=== PATIENT | male | born 1990 | race Caucasian/White ===

== ENCOUNTER 2017-11-15 22:44 | Emergency (ER) | payer OTHER ==
[~2017-11-15] VITALS: Ht 180.3 cm; Wt 77.1 kg
[2017-11-15 22:47] VITALS: BP 150/79
--- NOTE | 2017-11-15 22:50 | NUR ---
TO LOBBY A/W BED, AIDEE BRITO NOTED
--- NOTE | 2017-11-15 23:22 | NUR ---
PT TO ER BED 10
--- NOTE | 2017-11-15 23:30 | NUR ---
27/M CAME IN ED, C/O 12/10 SHARP, ACHING LOWER ABD PAIN, NONRADIATING, X8 DAYS. PT REPORTS N/V THAT RESOLVED 2 DAYS AGO, DIARRHEA X8 DAYS. PT REPORTS PRODUCTIVE COUGH WITH YELLOW SPUTUM. PT REPORTS FEVER. HX HTN, HIV. RX TRUVADA. NKA. SKIN IS INTACT, PINK/WARM/DRY; AAOX4, PERRL, WITH EVEN AND STEADY GAIT; LUNGS CLEAR BL, BREATHING UNLABORED; HR EVEN AND REGULAR, BL PERIPHERAL PULSES PRESENT; BS ACTIVE X4, SLIGHT TENDERNESS ON LOWER ABD; VSS; PATIENT POSITIONED FOR COMFORT; HOB ELEVATED; BEDRAILS UP X2; BED DOWN. ER MD MADE AWARE.
[2017-11-16] MEDS ORDERED: KETOROLAC 30 MG/ML VIAL IM ONE
[2017-11-16] MEDS ORDERED: PHENYLEPHRINE 0.5% 15 ML BTL NS ONE
[2017-11-16 00:55] VITALS: BP 137/62
--- NOTE | 2017-11-16 00:55 | NUR ---
Patient discharged with v/s stable. Written and verbal after care instructions given and explained. Patient alert, oriented and verbalized understanding of instructions. Ambulatory with steady gait. All questions addressed prior to discharge. ID band removed. Patient advised to follow up with PMD. Rx of Naproxen, Bentyl, and Azithromycin given. Patient educated on indication of medication including possible reaction and side effects. Opportunity to ask questions provided and answered.
== END 2017-11-16 00:55 | disposition home or self-care (01) ==
LOC: MED 22:44
DX: J20.9 Acute bronchitis, unspecified (principal); I10 Essential (primary) hypertension; F17.210 Nicotine dependence, cigarettes, uncomplicated
CPT/HCPCS: 71045; 81002; 96372; 99284; J1885; Q0092

== ENCOUNTER 2018-06-14 09:16 | Emergency (ER) | payer OTHER ==
[~2018-06-14] VITALS: Ht 172.7 cm; Wt 73.2 kg
[2018-06-14 09:20] VITALS: BP 138/89
--- NOTE | 2018-06-14 09:25 | NUR ---
PT AMBULATES TO BED 5
--- NOTE | 2018-06-14 09:34 | NUR ---
28/M BIB MOTHER C/O BL LOWER ABD CRAMPING, HEMATEMESIS AND BLOODY DIARRHEA X 2 WEEKS. PT REPORTS THAT HE WAS DIAGNOSES W/ HIV 2 MONTHS AGO AND IS AWAITING TREATMENTS. ABDOMEN SOFT. SKIN IS PINK/WARM/DRY; AAOX4 WITH EVEN AND STEADY GAIT; LUNGS CLEAR BL; HR EVEN AND REGULAR; PT DENIES ANY FEVER, CP, SOB, OR COUGH AT THIS TIME; PATIENT STATES PAIN OF 10/10 AT THIS TIME.PATIENT POSITIONED FOR COMFORT; HOB ELEVATED; BEDRAILS UP X2; BED DOWN. ER MD MADE AWARE OF PT STATUS.
--- NOTE | 2018-06-14 10:36 | NUR ---
Patient being evaluated by physician at bedside.
[2018-06-14] MEDS ORDERED: NACL 0.9% 1,000 ML IV ONE (10:40)
[2018-06-14] MEDS ORDERED: ONDANSETRON 4 MG/2 ML VIAL IVP ONE (10:40)
[2018-06-14] MEDS ORDERED: PANTOPRAZOLE 40 MG INJ VIAL IVP ONE (10:40)
[2018-06-14 10:57] LABS: BASOPHILS % (AUTO) 0.4 % (0.0-2.0); EOSINOPHILS # (AUTO) 0.1 K/uL (0-0.4); EOSINOPHILS % (AUTO) 1.1 % (0.0-4.0); LYMPHOCYTES # (AUTO) 1.9 K/uL (2.0-11.5); MEAN CORPUSCULAR HEMOGLOBIN 27 pg (27-31); MEAN CORPUSCULAR HGB CONC 33 g/dL (33-37); MEAN CORPUSCULAR VOLUME 82.2 fL (80-94); MONOCYTES # (AUTO) 0.8 K/uL (0.8-1.0); MONOCYTES % (AUTO) 9.2 % (1.7-9.3); NEUTROPHILS # (AUTO) 5.5 K/uL (1.8-7.7); NEUTROPHILS % (AUTO) 66.3 % (42.2-75.2); PLATELET COUNT (AUTO) 352 K/uL (140-450); RED BLOOD CELL COUNT(AUTO) 5.12 MIL/uL (4.20-6.10); RED CELL DISTRIBUTION WIDTH 13.1 % (11.6-13.7); WHITE BLOOD COUNT (AUTO) 8.3 K/uL (4.8-10.8)
--- NOTE | 2018-06-14 11:03 | NUR ---
PT TAKEN TO CT
--- NOTE | 2018-06-14 11:09 | NUR ---
PT RETURNED FROM CT
[2018-06-14 11:11] LABS: ANION GAP 8.2 (8-16); CARBON DIOXIDE 31.3 mmol/L (21-32); POTASSIUM 3.5 mmol/L (3.5-5.1)
[2018-06-14 11:17] LABS: ALBUMIN 3.4 g/dL (3.4-5.0); TOTAL BILIRUBIN 0.2 mg/dL (0.0-1.0)
[2018-06-14 11:21] LABS: PROTHROMBIN TIME 10.1 secs (10.8-13.4)
--- NOTE | 2018-06-14 11:37 | NUR ---
Patient being evaluated by DR MACHADO at bedside. Addendum: 06/14/18 at 1230 by [facility] CAN'T PROVIDE URINE AT THIS TIME
[2018-06-14 12:25] VITALS: BP 124/78
--- NOTE | 2018-06-14 12:25 | NUR ---
Patient discharged with v/s stable. Written and verbal after care instructions given and explained. Patient alert, oriented and verbalized understanding of instructions. Ambulatory with steady gait. All questions addressed prior to discharge. ID band removed. Patient advised to follow up with PMD. Rx of ZOFRAN, PROTONIX & LOMOTIL given. Patient educated on indication of medication including possible reaction and side effects. Opportunity to ask questions provided and answered.
== END 2018-06-14 12:25 | disposition home or self-care (01) ==
LOC: MED 09:16
DX: R19.7 Diarrhea, unspecified (principal); R10.9 Unspecified abdominal pain; R11.2 Nausea with vomiting, unspecified; R30.0 Dysuria; R42 Dizziness and giddiness; I10 Essential (primary) hypertension; F17.200 Nicotine dependence, unspecified, uncomplicated
CPT/HCPCS: 36415; 71045; 74176; 80053; 83690; 85025; 85610; 85730; 86886; 86900; 86901; 93005; 96361; 96374; 96375; 99284; C9113; J2405; J7030

== ENCOUNTER 2018-07-01 16:48 | Emergency (ER) | payer OTHER ==
[~2018-07-01] VITALS: Ht 180.3 cm; Wt 72.6 kg
[2018-07-01 17:04] VITALS: BP 141/86
--- NOTE | 2018-07-01 17:04 | NUR ---
PT TRIAGED AND SENT TO ER LOBBY
--- NOTE | 2018-07-01 17:58 | NUR ---
PT CALLED X 1 NO RESPONSE
--- NOTE | 2018-07-01 18:15 | NUR ---
CALLED X 2 NO REPONSE
--- NOTE | 2018-07-01 18:20 | NUR ---
PT CALLED X 3 NO RESPONSE
--- NOTE | 2018-07-01 18:32 | NUR ---
PATIENT LEFT WITHOUT BEING SEEN BY DR. GONGORA. NO FURTHER CARE PROVIDED FOR PATIENT.
== END 2018-07-01 17:58 | disposition left against medical advice (07) ==
LOC: MED 16:48
DX: R68.89 Other general symptoms and signs (principal); Z53.21 Procedure and treatment not carried out due to patient leaving prior to being seen by health care provider

== ENCOUNTER 2020-03-25 01:20 | Inpatient (IN) | payer OTHER, SELFPAY ==
[~2020-03-25] VITALS: Ht 180.3 cm; Wt 77.1 kg
[2020-03-25 01:25] VITALS: BP 125/90
--- NOTE | 2020-03-25 01:32 | NUR ---
pt ambulated to ER bed 2 w/ steady gait.
--- NOTE | 2020-03-25 01:35 | NUR ---
COVERING FOR PRIMARY NURSE WHILE ON LUNCH --- 29 Y/O MALE PRESENTED TO ED C/O DIARRHEA X 1 WEEK . PT STATES HE HAS HAD 1 DAY OF MUCUS AND BRIGHT BLOODY DIARRHEA. PT STATES HE STARTED TAKING PEPTO BISMOL BUT IT HAS MADE IT WORSE AND HIS STOOL TURNED WATERY BLACK AFTER USING THE MEDICATION. PT RATES PAIN 9/10 , CRAMPING. ABD FLAT, SOFT AND NONTENDER . HYPERACTIVE BOWEL SOUNDS NOTED. PT STATES HE HAD A FEVER YESTERDAY BUT DOES NOT HAVE ONE TODAY. PT DENIES N/V/BODY ACHES, CHILLS. A/O X 4 , RR EVEN AND UNLABORED. NO ACUTE DISTRESS NOTED AT THIS TIME. ERMD MADE AWARE OF PT STATUS. PMH: HIV + NKA
--- NOTE | 2020-03-25 01:55 | NUR ---
ERMD AT BEDSIDE FOR MEDICAL EVALUATION
[2020-03-25] MEDS ORDERED: LEVOFLOXACIN 500 MG/D5W PREMIX 100 ML IV ONE (02:00)
[2020-03-25] MEDS ORDERED: NACL 0.9% 2,500 ML IV ONE (02:00)
[2020-03-25 02:25] LABS: BASOPHILS % (AUTO) 0.3 % (0.0-2.0); EOSINOPHILS # (AUTO) 0.1 K/uL (0-0.4); EOSINOPHILS % (AUTO) 1.1 % (0.0-4.0); HEMATOCRIT 41.6 % (36-52); HEMOGLOBIN 14.1 g/dL (12.0-18.0); LYMPHOCYTES # (AUTO) 1.6 K/uL (2.0-11.5); LYMPHOCYTES % (AUTO) 24.5 % (20.5-51.1); MEAN CORPUSCULAR HEMOGLOBIN 28 pg (27-31); MEAN CORPUSCULAR HGB CONC 34 g/dL (33-37); MEAN CORPUSCULAR VOLUME 82.2 fL (80-94); MONOCYTES # (AUTO) 0.4 K/uL (0.8-1.0); MONOCYTES % (AUTO) 6.5 % (1.7-9.3); NEUTROPHILS # (AUTO) 4.5 K/uL (1.8-7.7); NEUTROPHILS % (AUTO) 67.6 % (42.2-75.2); PLATELET COUNT (AUTO) 297 K/uL (140-450); RED BLOOD CELL COUNT(AUTO) 5.05 MIL/uL (4.20-6.10); RED CELL DISTRIBUTION WIDTH 13.3 % (11.6-13.7); WHITE BLOOD COUNT (AUTO) 6.7 K/uL (4.8-10.8)
--- NOTE | 2020-03-25 02:30 | NUR ---
pt taken to radiology via muna
[2020-03-25] MEDS ORDERED: metroNIDAZOLE 500 MG/NS PREMIX 100 ML IV ONE (02:35)
[2020-03-25 02:40] LABS: CARBON DIOXIDE 25.7 mmol/L (21-32); CREATININE 1.2 mg/dL (0.6-1.3); POTASSIUM 3.7 mmol/L (3.5-5.1); TOTAL BILIRUBIN 0.3 mg/dL (0.0-1.0)
--- NOTE | 2020-03-25 02:55 | NUR ---
sinan gomez collected and walked over to lab
--- NOTE | 2020-03-25 02:58 | NUR ---
pt unable to provide urine specimen at this time, urinal provided, will check back in 15 minutes
--- NOTE | 2020-03-25 03:20 | NUR ---
pt states unable to provide urine at this time, pt connected to the plater printed circuit board panels. will continue to mintor.
--- NOTE | 2020-03-25 03:35 | NUR ---
Pt unable to provide urine specimen at this time, will try again in 10 minutes.
--- NOTE | 2020-03-25 03:55 | NUR ---
Urine specimen collected and walked over to lab
[2020-03-25 04:08] LABS: APPEARANCE,URINE CLEAR (CLEAR); BILIRUBIN,URINE NEGATIVE (NEGATIVE); BLOOD, URINE NEGATIVE (NEGATIVE); COLOR,URINE YELLOW (YELLOW); LEUKOCYTE ESTERASE ,URINE NEGATIVE (NEGATIVE); NITRITE, URINE NEGATIVE (NEGATIVE); UGLUCOSE NEGATIVE (NEGATIVE)
[2020-03-25] MEDS ORDERED: NACL 0.9% 1,000 ML IV SCH (05:10)
[2020-03-25] MEDS ORDERED: ACETAMINOPHEN 325 MG TAB PO PRN (05:10)
[2020-03-25] MEDS ORDERED: ONDANSETRON 4 MG/2 ML VIAL IVP PRN (05:10)
[2020-03-25] MEDS ORDERED: HYDROcodone/APAP 5/325 MG 1 TAB TAB PO PRN (05:10)
[2020-03-25] MEDS ORDERED: MORPHINE SULFATE 4 MG/ML SYR IVP PRN (05:10)
--- NOTE | 2020-03-25 05:27 | NUR ---
SPOKE WITH NATALIA FROM THE [facility] TO VERIFY ADMIT MEDICATION ORDERS.
--- NOTE | 2020-03-25 05:42 | NUR ---
PT AMBULATED TO ER RESTROOM WITH STEADY GAIT
--- NOTE | 2020-03-25 06:15 | NUR ---
PT IS ASLEEP, VISIBLE RISE AND FALL OF CHEST NOTED. BED IS LOCKED AND IN LOWEST POSITION. PT IS CONNECTED TO THE INTERNAL MEDICINE VETERINARY TECHNICIAN. SAO2 @99% RA. SIDE RAILS X1. PT IS NOT IN ANY ACUTE DISTRESS AT THIS TIME. WILL CONTINUE TO MONITOR.
--- NOTE | 2020-03-25 07:11 | NUR ---
REPORT GIVEN TO CAROLE KUNZ FOR TRANSFER OF CARE.
--- NOTE | 2020-03-25 07:18 | NUR ---
REPORT RECEIVED FROM FERNANDO LAM, TRANSFER OF CARE AT THIS TIME. PT RESTING WITH EYES CLOSED, BREATHING EVEN AND UNLABORED. NO DISTRESS NOTED.
--- NOTE | 2020-03-25 09:30 | NUR ---
pt insisting to leave, requested pt to wait for Dr. Conner to go over treatment and plan of care but pt stated "I'm not waiting, I want to leave now".
[2020-03-25 09:35] VITALS: BP 123/84
--- NOTE | 2020-03-25 09:35 | NUR ---
Dr. Conner at bedside with pt.
--- NOTE | 2020-03-25 09:42 | NUR ---
Pt leaving Dr. Ubaldo KAUR.
--- NOTE | 2020-03-25 11:37 | NUR ---
SOCIAL WORK NOTE: SW ATTEMPTED TO COMPLETE ASSESSMENT BUT PER NOTES, PATIENT LEFT AMA.
[2020-03-25] MEDS ORDERED: metroNIDAZOLE 500 MG/NS PREMIX 100 ML IV SCH (13:00)
[2020-03-26] MEDS ORDERED: LEVOFLOXACIN 500 MG/D5W PREMIX 100 ML IV SCH (03:00)
== END 2020-03-25 09:35 | disposition left against medical advice (07) | DRG 894 ==
LOC: MED 01:20 → MMU 05:12 → UNDOADMIN 05:12 → MMU 09:35
PROVIDERS: ADMIT Internal Medicine; ATTEND Internal Medicine
DX: A09 Infectious gastroenteritis and colitis, unspecified (principal); B20 Human immunodeficiency virus [HIV] disease; E86.0 Dehydration; Z20.828 Contact with and (suspected) exposure to other viral communicable diseases; Z53.29 Procedure and treatment not carried out because of patient's decision for other reasons
CPT/HCPCS: 36415; 71045; 80053; 81003; 83605; 85025; 87040; 87086; 93005; J1956; J3490

== ENCOUNTER 2020-07-19 00:13 | Inpatient (IN) | payer OTHER, SELFPAY ==
[~2020-07-19] VITALS: Ht 180.3 cm; Wt 78.5 kg
[2020-07-19 00:18] VITALS: BP 142/80
--- NOTE | 2020-07-19 00:20 | NUR ---
PT AMBULATED TO BED #9
[2020-07-19] MEDS ORDERED: NACL 0.9% 1,000 ML IV ONE ×2 (00:30→02:50)
--- NOTE | 2020-07-19 00:40 | NUR ---
PT IS A 30 Y MALE PRESENTS TO ED WITH GENERALIZED BODY AND MUSCLE PAIN, WITH 10/10 PAIN THAT STARTED 3-4 DAYS AGO. PT HAS A FEVER, COLD, CHILLS AND SOB PAST MEDICAL HX: HTN, HIV NKA
[2020-07-19] MEDS ORDERED: KETOROLAC 30 MG/ML VIAL IVP ONE (00:45)
--- NOTE | 2020-07-19 00:51 | NUR ---
WAGNER AND FLU SWABS COLLECTED AND SENT TO LAB
[2020-07-19 01:10] LABS: ALBUMIN 3.3 g/dL (3.4-5.0); ANION GAP 15.1 (8-16); BASOPHILS % (AUTO) 0.3 % (0.0-2.0); CARBON DIOXIDE 24.1 mmol/L (21-32); CREATININE 1.3 mg/dL (0.6-1.3); EOSINOPHILS # (AUTO) 0.1 K/uL (0-0.4); EOSINOPHILS % (AUTO) 0.6 % (0.0-4.0); HEMATOCRIT 39.9 % (36-52); HEMOGLOBIN 13.9 g/dL (12.0-18.0); LYMPHOCYTES # (AUTO) 1.5 K/uL (2.0-11.5); LYMPHOCYTES % (AUTO) 13.9 % (20.5-51.1); MEAN CORPUSCULAR HEMOGLOBIN 29 pg (27-31); MEAN CORPUSCULAR HGB CONC 35 g/dL (33-37); MEAN CORPUSCULAR VOLUME 82.2 fL (80-94); MONOCYTES # (AUTO) 0.6 K/uL (0.8-1.0); MONOCYTES % (AUTO) 5.3 % (1.7-9.3); NEUTROPHILS # (AUTO) 8.7 K/uL (1.8-7.7); NEUTROPHILS % (AUTO) 79.9 % (42.2-75.2); PLATELET COUNT (AUTO) 240 K/uL (140-450); POTASSIUM 4.2 mmol/L (3.5-5.1); RED BLOOD CELL COUNT(AUTO) 4.85 MIL/uL (4.20-6.10); RED CELL DISTRIBUTION WIDTH 13.2 % (11.6-13.7); TOTAL BILIRUBIN 0.4 mg/dL (0.0-1.0); WHITE BLOOD COUNT (AUTO) 10.9 K/uL (4.8-10.8)
--- NOTE | 2020-07-19 01:17 | NUR ---
RECEIVED CALL FROM BRIANNA, PT'S MOTHER. UPDATED ON PT STATUS. ALL QUESTIONS AND CONCERNS ANSWERED AT THIS TIME.
[2020-07-19] MEDS ORDERED: ACETAMINOPHEN EXTRA STRENGTH 500 MG TAB PO ONE (01:55)
--- NOTE | 2020-07-19 02:55 | NUR ---
PT STATED "NO ACTIVE MEDICATIONS AT THE MOMENT"
[2020-07-19] MEDS ORDERED: MORPHINE SULFATE 4 MG/ML SYR IVP ONE (03:45)
[2020-07-19] MEDS: NACL 0.9% 1,000 ML IV SCH ×2 (04:20→06:38)
--- NOTE | 2020-07-19 04:33 | NUR ---
NOVEL SWAB COLLECTED AND SENT TO LAB
--- NOTE | 2020-07-19 04:53 | NUR ---
RECEIVED REPORT FROM ER NURSE. WAIT FOR PATIENT COME TO UNIT.
--- NOTE | 2020-07-19 05:00 | NUR ---
RECEIVING PATIENT FROM ER NURSE FOR CONTINUITY OF CARE. PATIENT IS ON TELE MONITOR. DX TACHYCARDIA AND FEVER. A/A/O X4. RESPIRATORY EVEN AND TACHYPNEA, ON ROOM AIR. SKIN WARM, DRY, NON-DIAPHORETIC. IV ON LEFT AC 20 G, IS INFUSING FLUID. PATIENT ABLE TO AMBULATE FROM GURNEY TO BED. DENIES ANY PAIN OR DISCOMFORT. CARE PLAN DISCUSSED. ORIENTED TO UNIT, CALL LIGHT. MRSA SWAB COMPLETED. CALL LIGHT WITHIN REACH. WILL CONTINUE TO MONITOR.
--- NOTE | 2020-07-19 05:00 | NUR ---
Patient will be admitted to care of DR. GEORGE. Admited to TELEMETRY. Will go to room 114. Belongings list completed. Report to CAROLE CAVAZOS.
[2020-07-19 05:26] VITALS: BP 138/79
--- NOTE | 2020-07-19 05:44 | NUR ---
PT REQUESTED FOR ME TO CALL HIS MOTHER, BRIANNA NROTH. PHONE NUMBER [phone]. CALLED THE NUMBER TWICE AND IT WAS BUSY, WILL RELAY TO PATIENT.
--- NOTE | 2020-07-19 06:40 | NUR ---
PATIENT STATED HE IS FEELING WARM AND FEEL LIKE HE HAS FEVER. CHECK TEMP 102F. COOLING MEASURES WAS APPLIED, AND BLANKET WAS REMOVED. WILL FOLLOW UP WITH PRIMARY DR FOR ORDER.
--- NOTE | 2020-07-19 06:55 | NUR ---
PAGED DR CRUZ, ACOUSTIC SENSOR OPERATOR FOR DR GEORGE. WAIT FOR CALL BACK. Addendum: 07/19/20 at 0703 by Nish Wilkinson RN RN TO NOTIFY ABOUT PATIENT INCREASE TEMPERATURE AND ASK FOR ORDER.
--- NOTE | 2020-07-19 07:07 | NUR ---
RECEIVED CALL FROM DR GEORGE FOR ORDER. TYLENOL 650MG PO Q4H PRN FOR FEVER. WILL ADMINISTER WHEN VERIFY.
[2020-07-19] MEDS ORDERED: ACETAMINOPHEN 325 MG TAB PO PRN ×2 (07:10→08:25)
--- NOTE | 2020-07-19 07:20 | NUR ---
ENDORSED PATIENT TO AM NURSE FOR CONTINUITY OF CARE. NO SIGN OF DISTRESS NOTED. PATIENT IS STABLE.
--- NOTE | 2020-07-19 07:20 | NUR ---
RECEIVED REPORT FROM OCCUPATIONAL HEALTH AND SAFETY MANAGER NURSE. PATIENT SUPINE IN BED, AWAKE AND ALERT. RESPONDS TO VOICE. HOB 30 DEGREES, BREATHING EVEN AND UNLABORED, NO SIGNS OF ACUTE DISTRESS NOTED, ON ROOM AIR. SKIN INTACT. L AC 20 G CLEAN DRY AND INTACT INFUSING NS @ 100 ML/HR.
[2020-07-19] MEDS ORDERED: ONDANSETRON 4 MG/2 ML VIAL IVP PRN (08:25)
[2020-07-19] MEDS ORDERED: HYDROcodone/APAP 5/325 MG 1 TAB TAB PO PRN (08:25)
[2020-07-19] MEDS ORDERED: ZOLPIDEM 5 MG TAB PO PRN (08:25)
--- NOTE | 2020-07-19 08:59 | NUR ---
PATIENT HAS BEEN SCREENED AND CATEGORIZED LOW NUTRITION RISK. PATIENT WILL BE SEEN WITHIN 7 DAYS OF ADMISSION. 07/25/[address]
[2020-07-19] MEDS ORDERED: DOCUSATE SODIUM 100 MG GELCAP PO SCH (09:00)
[2020-07-19 09:09] LABS: BASOPHILS % (AUTO) 0.1 % (0.0-2.0); EOSINOPHILS % (AUTO) 0.1 % (0.0-4.0); HEMATOCRIT 37.5 % (36-52); HEMOGLOBIN 12.7 g/dL (12.0-18.0); LYMPHOCYTES # (AUTO) 1.4 K/uL (2.0-11.5); LYMPHOCYTES % (AUTO) 11.9 % (20.5-51.1); MEAN CORPUSCULAR HEMOGLOBIN 28 pg (27-31); MEAN CORPUSCULAR HGB CONC 34 g/dL (33-37); MEAN CORPUSCULAR VOLUME 82.5 fL (80-94); MONOCYTES # (AUTO) 0.6 K/uL (0.8-1.0); MONOCYTES % (AUTO) 5.3 % (1.7-9.3); NEUTROPHILS # (AUTO) 9.5 K/uL (1.8-7.7); NEUTROPHILS % (AUTO) 82.6 % (42.2-75.2); PLATELET COUNT (AUTO) 203 K/uL (140-450); RED BLOOD CELL COUNT(AUTO) 4.55 MIL/uL (4.20-6.10); WHITE BLOOD COUNT (AUTO) 11.5 K/uL (4.8-10.8)
--- NOTE | 2020-07-19 09:18 | NUR ---
ADMINISTERED SCHEDULED MEDS PER MD ORDER. MED EDUCATION PROVIDED, PATIENT VERBALIZES UNDERSTANDING.
[2020-07-19 10:37] LABS: ALBUMIN 2.7 g/dL (3.4-5.0); CARBON DIOXIDE 23.4 mmol/L (21-32); POTASSIUM 3.4 mmol/L (3.5-5.1); TOTAL BILIRUBIN 0.6 mg/dL (0.0-1.0)
[2020-07-19 10:42] LABS: THYROID STIMULATING HORMONE 0.58 uIU/mL (0.34-3.74)
[2020-07-19] MEDS ORDERED: POTASSIUM CHLORIDE 10 MEQ TABER PO SCH (10:50)
[2020-07-19] MEDS: IBUPROFEN 400 MG TAB PO SCH ×2 (12:42→16:18)
--- NOTE | 2020-07-19 12:43 | NUR ---
ADMINISTERED SCHEDULED MEDS PER MD ORDER. MED EDUCATION PROVIDED, PATIENT VERBALIZES UNDERSTANDING.
--- NOTE | 2020-07-19 14:00 | NUR ---
DC PLANNIN YRS OLD MALE PATIENT WAS ADMITTED FROM HOME WITH A DX OF TACHYCARDIA, FEVER. PT HAS A HX OF HIV. CXR SHOWED NO ACUTE DISEASE. RAPID COVID TEST NEGATIVE. PCR IS PENDING. STARTED ON IVF, ADELA BX ROCEPHIN AND TYLENOL FOR FEVER. CONSULTED WITH CARDIO AND ID. DC PLAN TO GO HOME WHEN STABLE. DC PLAN TO O HOME WHEN STABLE. CM TO FOLLOW
--- NOTE | 2020-07-19 16:18 | NUR ---
ADMINISTERED SCHEDULED MED PER MD ORDER. TOLERATED WELL WITH SIPS OF WATER. PATIENT VERBALIZES UNDERSTANDING.
--- NOTE | 2020-07-19 17:34 | NUR ---
PATIENT LEFT AMA. DR GEORGE AWARE. AMA PAPERWORK SIGNED. PATIENT WAS INFORMED AND EDUCATED OF RISKS OF LEAVING AMA. PATIENT VERBALIZES UNDERSTANDING AND SAYS HE WILL BE GOING TO ANOTHER HOSPITAL FOR CARE. PATIENT IS AWAKE AND FULLY ALERT, BREATHING EVEN AND UNLABORED, NO SIGNS OF ACUTE DISTRESS NOTED. STABLE AT THIS TIME. L AC 20G IV DISCONTINUED, DRY CLEAN AND INTACT, CATHETER INTACT.
== END 2020-07-19 17:34 | disposition left against medical advice (07) | DRG 720 ==
LOC: MED 00:13 → MTU 04:30
PROVIDERS: ADMIT Internal Medicine; ATTEND Internal Medicine
DX: A41.9 Sepsis, unspecified organism (principal); I10 Essential (primary) hypertension; F17.210 Nicotine dependence, cigarettes, uncomplicated; Z20.822 Contact with and (suspected) exposure to COVID-19; Z53.29 Procedure and treatment not carried out because of patient's decision for other reasons; E44.1 Mild protein-calorie malnutrition; E87.1 Hypo-osmolality and hyponatremia; Z21 Asymptomatic human immunodeficiency virus [HIV] infection status
CPT/HCPCS: 36415; 71045; 80053; 83540; 84443; 85025; 85651; 86140; 87040; 87081; 87804; 93005; 96361; 96374; 96375; 99285; J0696; J1885; J2270; J7030; J7060; U0003

== ENCOUNTER 2021-08-22 06:15 | Emergency (ER) | payer OTHER ==
[~2021-08-22] VITALS: Ht 180.3 cm; Wt 74.8 kg
[2021-08-22 06:19] VITALS: BP 141/72
[2021-08-22] MEDS: KETOROLAC 30 MG/ML VIAL IVP ONE (07:04)
[2021-08-22 07:15] LABS: BASOPHILS % (AUTO) 0.2 % (0.0-2.0); EOSINOPHILS # (AUTO) 0.3 K/uL (0-0.4); EOSINOPHILS % (AUTO) 5.9 % (0.0-4.0); HEMATOCRIT 36.6 % (36-52); HEMOGLOBIN 12.5 g/dL (12.0-18.0); LYMPHOCYTES # (AUTO) 1.1 K/uL (2.0-11.5); LYMPHOCYTES % (AUTO) 24.8 % (20.5-51.1); MEAN CORPUSCULAR HEMOGLOBIN 27 pg (27-31); MEAN CORPUSCULAR HGB CONC 34 g/dL (33-37); MEAN CORPUSCULAR VOLUME 79.2 fL (80-94); MONOCYTES # (AUTO) 0.4 K/uL (0.8-1.0); MONOCYTES % (AUTO) 8.2 % (1.7-9.3); NEUTROPHILS # (AUTO) 2.7 K/uL (1.8-7.7); NEUTROPHILS % (AUTO) 60.9 % (42.2-75.2); PLATELET COUNT (AUTO) 178 K/uL (140-450); RED BLOOD CELL COUNT(AUTO) 4.62 MIL/uL (4.20-6.10); RED CELL DISTRIBUTION WIDTH 15.5 % (11.6-13.7); WHITE BLOOD COUNT (AUTO) 4.4 K/uL (4.8-10.8)
[2021-08-22 07:32] LABS: ALBUMIN 3.3 g/dL (3.4-5.0); ANION GAP 9.5 (8-16); POTASSIUM 3.5 mmol/L (3.5-5.1); TOTAL BILIRUBIN 0.3 mg/dL (0.0-1.0)
[2021-08-22] MEDS: NACL 0.9% 1,000 ML IV SCH (07:40)
[2021-08-22 08:19] LABS: APPEARANCE,URINE CLEAR (CLEAR); BILIRUBIN,URINE NEGATIVE (NEGATIVE); BLOOD, URINE NEGATIVE (NEGATIVE); COLOR,URINE YELLOW (YELLOW); LEUKOCYTE ESTERASE ,URINE NEGATIVE (NEGATIVE); NITRITE, URINE NEGATIVE (NEGATIVE); UGLUCOSE NEGATIVE (NEGATIVE)
[2021-08-22] MEDS ORDERED: NAPR-1704 PO (08:33)
[2021-08-22 09:00] VITALS: BP 141/72
== END 2021-08-22 09:00 | disposition home or self-care (01) ==
LOC: MED 06:15
DX: R10.11 Right upper quadrant pain (principal); R10.31 Right lower quadrant pain; I10 Essential (primary) hypertension; B20 Human immunodeficiency virus [HIV] disease; Z86.69 Personal history of other diseases of the nervous system and sense organs; Z79.1 Long term (current) use of non-steroidal anti-inflammatories (NSAID)
CPT/HCPCS: 36415; 74176; 80053; 81003; 83690; 85025; 96361; 96374; 99284; J1885; J7030

== ENCOUNTER 2021-09-21 01:18 | Emergency (ER) | payer OTHER ==
[~2021-09-21] VITALS: Ht 180.3 cm; Wt 75.3 kg
[~2021-09-21 01:18] MED LIST: NAPR-1704 PO
[2021-09-21 01:30] VITALS: BP 132/80
--- NOTE | 2021-09-21 01:34 | NUR ---
PT AMBULATED TO BED #04
--- NOTE | 2021-09-21 01:58 | NUR ---
ER MD AT BEDSIDE EXAMINING PT
--- NOTE | 2021-09-21 01:58 | NUR ---
31 Y/O MALE BIBS FROM HOME, C/O 10/10 TESTICULAR PAIN X4WKS. PT STATES HE HAS DEEP CUTS THAT BLEED. WORSE OVER LAST COUPLE DAYS. A/OX4, GCS-15; UNLABORED BREATHING, SPEAKING IN FULL SENTENCES; AMBULATORY W/O ASSISTANCE; DENIES COUGH, FEVER, N/V/D, SOB, OR CP; SKIN NORMAL, WARM, AND DRY. PT SEATED IN BED W/ HOB RAISED, BED IN LOWEST SETTING, AND RAIL UP X1. HX:HIV+ AND HTN RX:NONCOMPLIANT NKA
[2021-09-21] MEDS ORDERED: CEPH-588 PO (02:02)
[2021-09-21] MEDS ORDERED: BACITRACIN OINT 500 UNITS/GM PKT TP ONE (02:04)
[2021-09-21] MEDS: BACITRACIN OINT 500 UNITS/GM PKT TP ONE (02:06)
[2021-09-21 02:10] VITALS: BP 132/80
--- NOTE | 2021-09-21 02:11 | NUR ---
Patient discharged with v/s stable. Written and verbal after care instructions given and explained. Patient alert, oriented and verbalized understanding of instructions. Ambulatory with steady gait. All questions addressed prior to discharge. ID band removed. Patient advised to follow up with PMD. Rx of KEFLEX given. Patient educated on indication of medication including possible reaction and side effects. Opportunity to ask questions provided and answered. VSS, A/OX4, UNLABORED BREATHING, AMBULATORY, AND CALM DEMEANOR.
== END 2021-09-21 02:10 | disposition home or self-care (01) ==
LOC: MED 01:18
DX: N49.2 Inflammatory disorders of scrotum (principal); I10 Essential (primary) hypertension
CPT/HCPCS: 99283

== ENCOUNTER 2021-09-24 05:17 | Emergency (ER) | payer OTHER ==
[~2021-09-24] VITALS: Ht 180.3 cm; Wt 76.7 kg
[~2021-09-24 05:17] MED LIST changes: +CEPH-588 PO
[2021-09-24 05:21] VITALS: BP 132/104
--- NOTE | 2021-09-24 05:26 | NUR ---
PT TAKEN TO ER BED 4
--- NOTE | 2021-09-24 05:27 | NUR ---
Dr. Obrien examining patient.
[2021-09-24] MEDS ORDERED: cefTRIAXone 1,000 MG in LIDOCAINE MPF 1% 2.1 ML IM ONE (05:30)
[2021-09-24] MEDS ORDERED: ACETAMINOPHEN EXTRA STRENGTH 500 MG TAB PO ONE (05:30)
--- NOTE | 2021-09-24 05:31 | NUR ---
31 Y/O MALE BIB FAMILY, C/O subj fever xtoday. took tylenol 2hrs ago. states he has an infection in genitals, says hes not sure what it is. pt was seen yesterday and d/c with antibiotics. reports dizziness. A/OX4, GCS-15; SKIN NORMAL, WARM, AND DRY; UNLABORED BREATHING AND SPEAKING IN FULL SENTENCES, AMBULATES WITHOUT ASSISTANCE. PT SEATED IN BED WITH HOB RAISED, BED IN LOWEST SETTING, AND RAILS UP X2 denies hx, rx and allergies
[2021-09-24] MEDS ORDERED: cefTRIAXone 1,000 MG VIAL ONE (05:33)
[2021-09-24] MEDS ORDERED: LIDOCAINE MPF 1% 5 ML ONE (05:33)
[2021-09-24 05:48] VITALS: BP 124/96
--- NOTE | 2021-09-24 05:49 | NUR ---
DR LIRA AT BEDSIDE DISCHARGING PT. Patient discharged with v/s stable. Written and verbal after care instructions given and explained. Patient verbalized understanding. Ambulatory with steady gait. All questions addressed prior to discharge. Advised to follow up with PMD. A/OX4, VSS, UNLABORED BREATHING, AMBULATORY, AND CALM DEMEANOR.
== END 2021-09-24 05:49 | disposition home or self-care (01) ==
LOC: MED 05:17
DX: I10 Essential (primary) hypertension (principal); Z86.69 Personal history of other diseases of the nervous system and sense organs; Z79.2 Long term (current) use of antibiotics; N49.2 Inflammatory disorders of scrotum; Z79.01 Long term (current) use of anticoagulants
CPT/HCPCS: 96372; 99283; J0696; J2001

== ENCOUNTER 2023-03-23 19:57 | Emergency (ER) | payer OTHER ==
[~2023-03-23] VITALS: Ht 180.3 cm; Wt 79.4 kg
[2023-03-23 20:12] VITALS: BP 146/97; PULSE 105; RESP 17; TEMP 98.7; O2SAT 100
[2023-03-23] MEDS ORDERED: NACL 0.9% 1,000 ML IV SCH (20:30)
[2023-03-23] MEDS ORDERED: ONDANSETRON 4 MG/2 ML VIAL IVP ONE (20:50)
[2023-03-23] MEDS ORDERED: KETOROLAC 30 MG/ML VIAL IVP ONE (20:50)
[2023-03-23 21:01] LABS: BASOPHILS % (AUTO) 0.2 % (0.0-2.0); EOSINOPHILS # (AUTO) 0.3 K/uL (0-0.4); EOSINOPHILS % (AUTO) 5.3 % (0.0-4.0); HEMATOCRIT 43.4 % (36-52); HEMOGLOBIN 14.8 g/dL (12.0-18.0); LYMPHOCYTES # (AUTO) 1.9 K/uL (2.0-11.5); MEAN CORPUSCULAR HEMOGLOBIN 28 pg (27-31); MEAN CORPUSCULAR HGB CONC 34 g/dL (33-37); MEAN CORPUSCULAR VOLUME 82.2 fL (80-94); MONOCYTES # (AUTO) 0.5 K/uL (0.8-1.0); MONOCYTES % (AUTO) 9.8 % (1.7-9.3); NEUTROPHILS # (AUTO) 2.6 K/uL (1.8-7.7); NEUTROPHILS % (AUTO) 48.7 % (42.2-75.2); PLATELET COUNT (AUTO) 265 K/uL (140-450); RED BLOOD CELL COUNT(AUTO) 5.28 MIL/uL (4.20-6.10); RED CELL DISTRIBUTION WIDTH 14.4 % (11.6-13.7); WHITE BLOOD COUNT (AUTO) 5.4 K/uL (4.8-10.8)
[2023-03-23 21:17] LABS: ALBUMIN 3.7 g/dL (3.4-5.0); ANION GAP 12.7 (8-16); CALCIUM 8.6 mg/dL (8.5-10.1); CARBON DIOXIDE 28.3 mmol/L (21-32); CREATININE 1.2 mg/dL (0.6-1.3); TOTAL BILIRUBIN 0.3 mg/dL (0.0-1.0); TOTAL PROTEIN, SERUM 8.8 g/dL (6.4-8.2)
[2023-03-23 21:31] LABS: FLU A ANTIGEN negative (NEGATIVE); FLU B ANTIGEN NEGATIVE (NEGATIVE)
[2023-03-23 21:38] LABS: APPEARANCE,URINE CLEAR (CLEAR); BLOOD, URINE NEGATIVE (NEGATIVE); COLOR,URINE YELLOW (YELLOW); PROTEIN,URINE TRACE (NEGATIVE); UGLUCOSE NEGATIVE (NEGATIVE)
[2023-03-23 21:39] LABS: BILIRUBIN,URINE NEGATIVE (NEGATIVE); LEUKOCYTE ESTERASE ,URINE NEGATIVE (NEGATIVE); NITRITE, URINE NEGATIVE (NEGATIVE); UROBILINOGEN,URINE 0.2 EU/dL (0.2 - 1)
[2023-03-23] MEDS ORDERED: ONDA-188 SL (22:47)
[2023-03-23 22:50] VITALS: BP 130/80; PULSE 90; RESP 17; TEMP 97.8; O2SAT 100
== END 2023-03-23 22:50 | disposition home or self-care (01) ==
LOC: MED 19:57
DX: A08.4 Viral intestinal infection, unspecified (principal); Z20.822 Contact with and (suspected) exposure to COVID-19; I10 Essential (primary) hypertension; Z86.69 Personal history of other diseases of the nervous system and sense organs; Z79.899 Other long term (current) drug therapy; Z79.2 Long term (current) use of antibiotics; Z79.1 Long term (current) use of non-steroidal anti-inflammatories (NSAID)
CPT/HCPCS: 36415; 74176; 80053; 81003; 83690; 85025; 87426; 87804; 96361; 96374; 96375; 99285; J1885; J2405; J7030

== ENCOUNTER 2023-06-18 00:20 | Emergency (ER) | payer OTHER ==
[~2023-06-18] VITALS: Ht 180.3 cm; Wt 84.8 kg
[~2023-06-18 00:20] MED LIST changes: +ONDA-188 SL
[2023-06-18 00:34] VITALS: BP 141/107; PULSE 104; RESP 20; TEMP 97.4; O2SAT 97
[2023-06-18] MEDS ORDERED: METR-435 PO (01:06)
[2023-06-18] MEDS: ACETAMINOPHEN EXTRA STRENGTH 500 MG TAB PO ONE (01:11)
== END 2023-06-18 01:10 | disposition home or self-care (01) ==
LOC: MED 00:20
DX: A09 Infectious gastroenteritis and colitis, unspecified (principal); Z21 Asymptomatic human immunodeficiency virus [HIV] infection status; I10 Essential (primary) hypertension; Z86.69 Personal history of other diseases of the nervous system and sense organs; Z79.899 Other long term (current) drug therapy
CPT/HCPCS: 99283